=== PATIENT | female | born 1990 | race Caucasian/White ===

== ENCOUNTER → 2017-09-15 | Outpatient (CLI) | payer OTHER ==
[~2017-09-15] MED LIST: ALBU8.5H IH; ESCI20TA38 PO; METH20TA33 PO
--- NOTE | 2017-09-15 15:45 | RADIOLOGY IMAGING REPORT ---
FACILITY: [facility] - [place] PATIENT NAME: Loraine Eugene : 1990 MR: [id number] V: [id number] EXAM DATE: ORDERING PHYSICIAN: KRISTEN MOSES TECHNOLOGIST: Location: [facility] [place] Patient: Loraine Eugene : 1990 Visit/Account:[id number] Date of Sevice: 09/15/2017 HEAD W/O CONTRAST Provided history: right parieto-occipital skull lesion Additional pertinent history: none TECHNIQUE: Imaging was obtained from the skull base through the vertex without intravenous contrast. Source images were reformatted in the coronal sagittal planes. One of the following dose optimization techniques was utilized in the performance of this exam: Autom ated exposure control; adjustment of the mA and/or kV according to the patient's size; or use of an i terative reconstruction technique. Specific details can be referenced in the facility's radiology CT exam operational policy. COMPARISON STUDIES: None FINDINGS: Brain volume: Normal Acute cortical ischemia: None Chronic cortical and ganglionic ischemia: none significant Hemorrhage: None Masses / edema: None White matter: Normal Vessels: Normal Extra-axial: None significant Calvarium / scalp: Correlating with history given, there is very well-circumscribed ossific density arising from the outer table of the lower right calvarium very close to the lambdoid suture, partiall y involving the posterior parietal bone partially the anterior occipital bone. It measures approximat dann 16 mm craniocaudal, 13 mm AP and is up to 5 no meters in thickness. Density is homogeneous. There is no associated soft tissue mass. No associated lytic pattern in the cancellous bone. Inner table i s normal. No similar features elsewhere in the calvarium. Skull base: negative Visualized sinuses / orbits: Prominent julian bullosa left middle turbinate noted with bowing of the septum to the right. IMPRESSION: 1. Normal CT of the brain. No evidence of mass, acute ischemia or hemorrhage. 2. Benign-appearing osteoma posterior right calvarium. Report Dictated By: Ken Brito MD at 09/15/2017 3:32 PM Report E-Signed By: Ken Brito MD at 09/15/2017 3:41 PM WSN:[id number]
== END ==
LOC: CT 00:29
PROVIDERS: ATTEND Otolaryngology
DX: R93.0 Abnormal findings on diagnostic imaging of skull and head, not elsewhere classified (principal)
CPT/HCPCS: 70450